=== PATIENT | female | born 1975 | race Caucasian/White ===

== ENCOUNTER 2017-03-17 19:46 | Emergency (ER) | payer BC ==
[~2017-03-17 19:46] MED LIST: AUGMENTIN875 MG PO; CYMBALTA60 MG PO; HCTZ12.5 MG PO; MOTRIN-DPS800 MG PO; PERCOCET 5 DPS1 TAB PO; SENOKOT S1 TAB PO
--- NOTE | 2017-03-29 14:37 | ER ---
ADMIT: 03/17/2017 RM/LOC: ER [facility] MR#: [id number] [address] [id number] JAMIE ROBERTS [address] [place] [address] Emergency Room Report SEX: F AGE: 42 : 1975 DATE: 03/17/2017 ADDENDUM: CHIEF COMPLAINT: Hypertension. HISTORY OF PRESENT ILLNESS: This is a 42-year-old, who has just had headaches for the last week, just has not really felt good. She went to [facility]. She checked her blood pressure and it was elevated, about 200 systolic, so came into the emergency room. COURSE IN THE EMERGENCY ROOM: I did a CBC, a BMP, and a TSH. She is slightly hypothyroid, her TSH was 6.080, her potassium was slightly low at 3.1. Otherwise, labs were normal. She is supposed to be taking potassium and come to find out she has not been taking it. She has a prescription at home. I told her to take that for the next 5 days. I am also placing her on lisinopril in addition to her hydrochlorothiazide to help with blood pressure. I told her this may normalize her potassium issues, but for the next 5 days at least to take the potassium. I am also prescribing her Synthroid 25 mcg daily. She is to follow up with Dr. Balderas this week to recheck. Also, encouraged her to lose weight, it sounds like she has gained 20 pounds in the last few months. CLINICAL IMPRESSION: 1. Hypothyroid. 2. Hypertension. 3. Hypokalemia secondary to hydrochlorothiazide. DISPOSITION: Stable at discharge and will follow up with Dr. Balderas in the next couple weeks. MIRTHA Knowles / Mac Wilburn MD / mic JOB #: [id number] CC: Mac Wilburn MD, Attending Physician Marianne Balderas MD, Family Physician
== END 2017-03-17 22:45 | disposition home or self-care (01) ==
LOC: ER 19:46
DX: I10 Essential (primary) hypertension (principal); E03.9 Hypothyroidism, unspecified; E87.6 Hypokalemia; Z90.710 Acquired absence of both cervix and uterus; Z88.6 Allergy status to analgesic agent; Z88.8 Allergy status to other drugs, medicaments and biological substances; Z79.899 Other long term (current) drug therapy

== ENCOUNTER → 2017-03-28 | Outpatient (CLI) | payer BC ==
--- NOTE | ~2017-03-28 | ECH ---
Transthoracic Echocardiography Report (TTE) Demographics Patient Name JAMIE ROBERTS Date of Study 03/28/2017 Patient Number [id number] Visit Number [id number] Date of 1975 Room Number Accession Number [id number] Gender Female Age 42 year(s) Referring Rick Hampton Chief Console Operator Willow Moyer [facility] Physician RUBÉN Physician Interpreting King Jonny Pearson MD Real Estate Instructor Physician Supervising Ordering Physician Rick Hampton APRN, MD/MLP Nurse Stress Application Project Leader Conclusions Summary Technically good exam. The estimated left ventricular ejection fraction is 60-65%. No significant valvular abnormalities. Normal study. Procedure Type of Study TTE procedure:Echo Complete SF. Procedure Date Date: 03/28/2017 Start: 01:04 Technical Quality: Good visualization Indications:Palpitations and edema. Appropriate Use Criteria: 9 Height: 63 inches Weight: 214 pounds BSA: 1.99 m Rhythm: NSR HR: 80 bpm BP: 107/76 mmHg M-Mode/2D Measurements LV Diastolic Dimension: 5.1 cm LV Systolic Dimension: 3.47 cm LV Septum Diastolic: 0.74 cm LV PW Diastolic: 0.73 cm AO Root Dimension: 2.84 cm Cardiac Output: 5.35 l/min LA Dimension: 3.61 cm Cardiac Index: 2.69 l/min*m RV Diastolic Dimension: 3.46 cm LA volume index: 16 ml/m LVOT: 1.99 cm LVOT VTI: 21.52 cm RV Base: 2.8 cm LV Stroke volume: 66.9 ml RV Mid: 1.9 cm LV Stroke volume index: 33.62 ml/m TAPSE: 2.2 cm TDI-S': 13 cm/s Doppler Measurements AV Peak Velocity: 1.3 m/s MV Peak E-Wave: 0.84 m/s AV Peak Gradient: 6.76 mmHg MV Peak A-Wave: 0.62 m/s AV Mean Gradient: 3.26 mmHg MV E/A Ratio: 1.35 LVOT Peak Velocity: 1.01 m/s MV P1/2t: 66.5 msec AV Area (Continuity):2.87 cm MV Deceleration Time: 219.6 msec TR Velocity:2.24 m/s MV Area (PHT): 3.31 cm TR Gradient:20.07 mmHg PV Peak Velocity: 0.91 m/s Estimated RAP:3 mmHg PV Peak Gradient: 3.31 mmHg Estimated RVSP: 23 mmHg Estimated PASP: 23.07 mmHg E' Septal Velocity: 0.12 m/s A' Septal Velocity: 0.08 m/s E' Lateral Velocity: 0.12 m/s A' Lateral Velocity: 0.07 m/s RA Area: 11.11 cm Findings Left Ventricle Normal left ventricle size and function. Diastolic assessment reveals normal relaxation. Right Ventricle Normal right ventricle structure and function. Left Atrium Normal left atrial size. Right Atrium Normal right atrial size. Mitral Valve Normal mitral valve structure and function. Trivial mitral regurgitation by color Doppler. Aortic Valve Normal aortic valve structure and function. Tricuspid Valve Normal tricuspid valve structure and function. Trivial tricuspid regurgitation by color Doppler. Normal pulmonary pressures. Pulmonic Valve Normal pulmonic valve structure and function. Pericardial Effusion No evidence of pericardial effusion. Miscellaneous Visualized portions of the aortic root and ascending aorta appear normal in size. Pleural Effusion No evidence of pleural effusion. Signature
== END | disposition home or self-care (01) ==
LOC: CARD 12:50
DX: R00.2 Palpitations (principal); R60.0 Localized edema